=== PATIENT | female | born 1990 | race African-American/Black ===

== ENCOUNTER 2016-11-19 13:21 | Emergency (ER) | payer OTHER ==
[~2016-11-19 13:21] MED LIST: ROBAXIN500 MG PO
[2016-11-19] MEDS ORDERED: NO MEDICATIONS (13:26)
== END 2016-11-19 14:03 | disposition home or self-care (01) ==
LOC: SED 13:21
DX: S40.012A Contusion of left shoulder, initial encounter (principal); R07.89 Other chest pain; W50.0XXA Accidental hit or strike by another person, initial encounter; Y93.72 Activity, wrestling; Y92.009 Unspecified place in unspecified non-institutional (private) residence as the place of occurrence of the external cause; F17.210 Nicotine dependence, cigarettes, uncomplicated
CPT/HCPCS: 99283